=== PATIENT | female | born 1975 | race Caucasian/White ===

== ENCOUNTER 2023-02-26 19:45 | Inpatient (IN) | payer OTHER ==
--- NOTE | 2023-02-26 20:11 | ED ---
General Adult HPI - General Chief complaint: Abdominal Pain Stated complaint: Gallbladder pain Time Seen by Provider: 02/26/23 20:01 Source: patient Mode of arrival: ambulatory Limitations: no limitations - History of Present Illness Initial comments: Dictation was produced using [employer] dictation software. please excuse any grammatical, word or spelling errors. Chief Complaint: 48-year-old female presents emergency department for right upper quadrant pain History of Present Illness: 48-year-old female she was seen at [facility] today for 2 days of right upper quadrant pain. No fevers. No nausea or vomiting. She was seen at [facility] and had a outpatient ultrasound scheduled. She decided to come here for her pain. She is aware that we have more robust ultrasound capabilities. Patient denies any history of abdominal surgery. She is upset that she does not remember the details of her visit at outside ER. The ROS documented in this emergency department record has been reviewed and confirmed by me. Those systems with pertinent positive or negative responses have been documented in the HPI. All other systems are other negative and/or noncontributory. - Related Data Home Medications Medication Instructions Recorded Confirmed HYDROcodone/APAP 5-325MG [Artie 1 tab PO Q6H PRN 02/26/23 02/26/23 5-325] Ibuprofen [Motrin Ib] 600 mg PO DAILY PRN 02/26/23 02/26/23 Allergies Allergy/AdvReac Type Severity Reaction Status Date / Time No Known Allergies Allergy Verified 02/26/23 21:24 Review of Systems ROS Statement: Those systems with pertinent positive or pertinent negative responses have been documented in the HPI. ROS Other: All systems not noted in ROS Statement are negative. Past Medical History Past Medical History: No Reported History History of Any Multi-Drug Resistant Organisms: None Reported Past Surgical History: No Surgical Hx Reported Past Psychological History: No Psychological Hx Reported Smoking Status: Current every day smoker Past Alcohol Use History: None Reported Past Drug Use History: None Reported General Exam - General Exam Comments Initial Comments: PHYSICAL EXAM: General Impression: Alert and oriented x3, not in acute distress HEENT: Normocephalic atraumatic, extra-ocular movements intact, pupils equal and reactive to light bilaterally, mucous membranes moist. Cardiovascular: Heart regular rate and rhythm Chest: Able to complete full sentences, no retractions, no tachypnea Abdomen: abdomen soft, right upper quadrant tenderness, negative Dey sign, non-distended, no organomegaly Musculoskeletal: Pulses present and equal in all extremities, no peripheral edema Motor: no focal deficits noted Neurological: CN II-XII grossly intact, no focal motor or sensory deficits noted Skin: Intact with no visualized rashes Psych: Normal affect and mood Limitations: no limitations Course Vital Signs 02/26/23 19:56 Temperature 97.6 F Pulse Rate 68 Respiratory 16 Rate Blood Pressure 117/74 O2 Sat by Pulse 97 Oximetry - Reevaluation(s) Reevaluation #1: 02/26/23 21:12 Documentation was obtained from [facility] from her visit earlier today. She presented there for right upper quadrant abdominal pain, diarrhea and vomiting. Labs reviewed. No leukocytosis. Lactic acidosis is normal. Abdominal labs showed otherwise labs within acceptable limits. According to documentation her clinical presentation there suggested calculus cholecystitis. She was scheduled for an outpatient ultrasound Medical Decision Making - Medical Decision Making Was pt. sent in by a medical professional or institution (, PA, CERTIFIED WELLNESS PROGRAM MANAGER, urgent care, hospital, or skilled nursing...) When possible be specific @ -No Did you speak to anyone other than the patient for history (EMS, parent, family, police, friend...)? What history was obtained from this source @ -No Did you review nursing and triage notes (agree or disagree)? Why? @ -I reviewed and agree with nursing and triage notes Were old charts reviewed (outside hosp., previous admission, EMS record, old EKG, old radiological studies, urgent care reports/EKG's, skilled nursing records)? Report findings @ -No old charts were reviewed Differential Diagnosis (chest pain, altered mental status, abdominal pain women, abdominal pain men, vaginal bleeding, musculoskeletal, weakness, fever, dyspnea, syncope, headache, dizziness, GI bleed, back pain, seizure, CVA, palpatations, mental health)? @ -Differential Abdominal Pain Women: Appendicitis, Cholecystitis, diverticulosis, ischemic bowel, pancreatitis, hepatitis, UTI, gastroenteritis, AAA, incarcerated hernia, bowel obstruction, constipation, inflammatory bowel, hepatitis, peptic ulcer disease, splenic infarction, perforated viscus, vulvitis, ovarian torsion, PID, kidney stone, placenta abruption, this is not meant to be an all-inclusive list EKG interpreted by me (3pts min.). @ -None done X-rays interpreted by me (1pt min.). @ -None done CT interpreted by me (1pt min.). @ -None done U/S interpreted by me (1pt. min.). @ -Gallstone with, thickened espinoza and mild pericholecystic fluid What testing was considered but not performed or refused? (CT, X-rays, U/S, labs)? Why? @ -None What meds were considered but not given or refused? Why? @ -None Did you discuss the management of the patient with other professionals (professionals i.e. DrWendi, PA, CERTIFIED WELLNESS PROGRAM MANAGER, lab, RT, psych nurse, high school social studies tutor, process safety engineer, teacher, escrow officer, welfare case worker)? Give summary @ -Case discussed with on-call general surgeon, Dr. Ruvalcaba for admission and she requests patient be given Zosyn. Was smoking cessation discussed for >3mins.? @ -No Was critical care preformed (if so, how long)? @ -No Were there social determinants of health that impacted care today? How? (Homelessness, low income, unemployed, alcoholism, drug addiction, transportation, low edu. Level, literacy, decrease access to med. care, half-way, rehab)? @ -No Was there de-escalation of care discussed even if they declined (Discuss DNR or withdrawal of care, Hospice)? DNR status @ -No What co-morbidities impacted this encounter? (DM, HTN, Smoking, COPD, CAD, Cancer, CVA, ARF, Chemo, Hep., AIDS, mental health diagnosis, sleep apnea, morbid obesity)? @ -None Was patient admitted / discharged? Hospital course, mention meds given and route, prescriptions, significant lab abnormalities, going to OR and other pertinent info. @ -48-year-old female presents emergency department for right upper quadrant pain. She was seen at outside emergency department. She was discharged with schedule outpatient gallbladder ultrasound. She presented to our hospital in stable vital signs. Documentation from outside Hospital visit was reviewed. Laboratory evaluation obtained. CBC and metabolic panel within acceptable limits.Ultrasound was ordered showing radiographically evidence of acute cholecystitis. Patient given Zosyn will be admitted to general surgery Undiagnosed new problem with uncertain prognosis? @ -No Drug Therapy requiring intensive monitoring for toxicity (Heparin, Nitro, Insulin, Cardizem)? @ -No Were any procedures done? @ -No Diagnosis/symptom? Acute, or Chronic, or Acute on Chronic? Uncomplicated (without systemic symptoms) or Complicated (systemic symptoms)? @ -1. Acute cholecystitis Side effects of treatment? @ -No Exacerbation, Progression, or Severe Exacerbation? @ -No Poses a threat to life or bodily function? How? (Chest pain, [place], [place], pneumonia, PE, COPD, DKA, ARF, appy, cholecystitis, CVA, Diverticulitis, Homicidal, Suicidal, threat to staff... and all critical care pts) @ -yes - Lab Data Result diagrams: 02/26/23 21:16 02/26/23 21:16 Lab Results 02/26/23 02/26/23 02/26/23 Range/Units 21:16 21:16 21:16 WBC 10.0 (3.8-10.6) k/uL RBC 4.51 (3.80-5.40) m/uL Hgb 12.7 (11.4-16.0) gm/dL Hct 40.0 (34.0-46.0) % MCV 88.6 (80.0-100.0) fL MCH 28.1 (25.0-35.0) pg MCHC 31.7 (31.0-37.0) g/dL RDW 17.5 H (11.5-15.5) % Plt Count 216 (150-450) k/uL MPV 7.0 Neutrophils % 76 % Lymphocytes % 16 % Monocytes % 5 % Eosinophils % 1 % Basophils % 0 % Neutrophils # 7.6 (1.3-7.7) k/uL Lymphocytes # 1.6 (1.0-4.8) k/uL Monocytes # 0.5 (0-1.0) k/uL Eosinophils # 0.1 (0-0.7) k/uL Basophils # 0.0 (0-0.2) k/uL Anisocytosis Slight Sodium 132 L (137-145) mmol/L Potassium 3.8 (3.5-5.1) mmol/L Chloride 106 (98-107) mmol/L Carbon Dioxide 19 L (22-30) mmol/L Anion Gap 7 mmol/L BUN 9 (7-17) mg/dL Creatinine 0.60 (0.52-1.04) mg/dL Est GFR (CKD-EPI)AfAm >90 (>60 ml/min/1.73 sqM) Est GFR (CKD-EPI)NonAf >90 (>60 ml/min/1.73 sqM) Glucose 97 (74-99) mg/dL Plasma Lactic Acid Justin 0.7 (0.7-2.0) mmol/L Calcium 7.5 L (8.4-10.2) mg/dL Total Bilirubin 2.3 H (0.2-1.3) mg/dL AST 21 (14-36) U/L ALT 16 (4-34) U/L Alkaline Phosphatase 85 (38-126) U/L Total Protein 4.8 L (6.3-8.2) g/dL Albumin 2.8 L (3.5-5.0) g/dL Disposition Clinical Impression: Acute cholecystitis Disposition: ADMITTED IP TO THIS HOSP Condition: Fair Decision Time: 21:01
--- NOTE | 2023-02-26 20:50 | US ---
EXAMINATION TYPE: US abdomen limited DATE OF EXAM: 02/26/2023 COMPARISON: NONE CLINICAL INDICATION: Female, 48 years old with history of ruq pain; extreme abd pain for 2 days TECHNIQUE: Multiple sonographic images of the right upper quadrant are obtained. FINDINGS: EXAM MEASUREMENTS: Liver Length: 15.0 cm Gallbladder Wall: 1.1 cm CBD: 0.5 cm Right Kidney: 9.1 x 4.9 x 5.1 cm Pancreas: Within normal limits. Liver: Within normal limits. Gallbladder: 1.3cm neck stone that did not move when rolling patient, additional stone noted, sludge , and gross wall thickening with pericholecystic fluid seen Evidence for sonographic Dey's sign: YES CBD: Within normal limits measuring up to 5 mm. Right Kidney: Normal appearance. Findings communicated to Dr. Santo Pratt DO on 02/26/2023 8:[address] Sarah Alvarez. IMPRESSION: Sonographic findings concerning for acute calculus cholecystitis.
[2023-02-26] MEDS ORDERED: NALOXONE 0.4 MG/ML 1 ML VIAL IV PRN (21:39)
[2023-02-26] MEDS ORDERED: ONDANSETRON 4 MG/2 ML VIAL IVP PRN (21:39)
[2023-02-26] MEDS ORDERED: MORPHINE SULFATE 4 MG/ML SYRINGE IV PRN (21:39)
[2023-02-26 21:57] LABS: Anisocytosis Slight; Basophils % (A) 0 %; Eosinophils # (A) 0.1 k/uL (0-0.7); Eosinophils % (A) 1 %; HGB 12.7 gm/dL (11.4-16.0); Lymphocytes # (A) 1.6 k/uL (1.0-4.8); Lymphocytes % (A) 16 %; MCH 28.1 pg (25.0-35.0); MCHC 31.7 g/dL (31.0-37.0); MCV 88.6 fL (80.0-100.0); Monocytes # (A) 0.5 k/uL (0-1.0); Monocytes % (A) 5 %; Neutrophils # (A) 7.6 k/uL (1.3-7.7); Neutrophils % (A) 76 %; Platelet Count 216 k/uL (150-450); RBC 4.51 m/uL (3.80-5.40); RDW 17.5 % (11.5-15.5)
[2023-02-26] MEDS: SODIUM CHLORIDE 0.9% 1,000 ML IV SCH (22:02)
[2023-02-26 22:06] LABS: ALT 16 U/L (4-34); AST 21 U/L (14-36); African American GFR (CKD) >90 (>60 ml/min/1.73 sqM); Albumin 2.8 g/dL (3.5-5.0); Alkaline Phosphatase 85 U/L (38-126); Anion Gap 7 mmol/L; Blood Urea Nitrogen 9 mg/dL (7-17); Calcium 7.5 mg/dL (8.4-10.2); Carbon Dioxide 19 mmol/L (22-30); Chloride 106 mmol/L (98-107); Glucose 97 mg/dL (74-99); Non-African American GFR(CKD) >90 (>60 ml/min/1.73 sqM); Potassium 3.8 mmol/L (3.5-5.1); Sodium 132 mmol/L (137-145); Total Bilirubin 2.3 mg/dL (0.2-1.3); Total Protein 4.8 g/dL (6.3-8.2)
[2023-02-26] MEDS: HYDROmorphone 1 MG/ML 1 ML SYRINGE IVP PRN (23:51)
[2023-02-26] MEDS: PIPERACILLIN-TAZOBACTAM 3.375 GM in SODIUM CHLORIDE 0.9% 100 ML IVPB SCH (23:51)
[2023-02-27] MEDS: PIPERACILLIN-TAZOBACTAM 3.375 GM in SODIUM CHLORIDE 0.9% 100 ML IVPB SCH ×3 (07:48→23:53)
[2023-02-27] MEDS: SODIUM CHLORIDE 0.9% 1,000 ML IV SCH ×2 (07:48→18:49)
[2023-02-27] MEDS: HYDROmorphone 1 MG/ML 1 ML SYRINGE IVP PRN (08:00)
[2023-02-27] MEDS: HEPARIN SODIUM,PORCINE/PF 5,000 UNIT/0.5 ML SYRINGE SQ SCH ×2 (10:45→21:12)
--- NOTE | 2023-02-27 11:41 | CONS ---
CONSULTATION REASON FOR CONSULTATION: Advice regarding cholecystitis and other medical issues requested by Surgery. HISTORY OF PRESENT ILLNESS: This is a 48-year-old woman with a past medical history of no significant issues but was complaining of right upper quadrant pain. The patient went to a peripheral hospital and subsequently came to [facility]. Ultrasound showed evidence of cholecystitis with a 1.3 cm neck stone. Surgery is planning the patient's surgery. There is no history of any fever, rigors, or chills. PAST MEDICAL HISTORY: No significant medical issues. Smoking. HOME MEDICATIONS: 1. Motrin. 2. Hydrocodone. ALLERGIES: None. FAMILY HISTORY: No history of heart disease or strokes in the family. SOCIAL HISTORY: Smoking. REVIEW OF SYSTEMS: Fourteen-point review is negative except as mentioned earlier. PHYSICAL EXAMINATION: VITAL SIGNS: Pulse 76, blood pressure 109/66, respirations 18. HEENT: Conjunctivae are normal. NECK: No jugular venous distention. CARDIOVASCULAR: S1 and S2 muffled. RESPIRATORY: Clear to auscultation. ABDOMEN: Soft. Mild diffuse tenderness in the right upper quadrant. No guarding. No rigidity. LEGS: No edema. NERVOUS SYSTEM: No focal deficits. SKIN: No ulcer, rash, or bleeding. JOINTS: No active deforming arthropathy. LABORATORY DATA: Reviewed. ASSESSMENT: 1. Acute cholecystitis with severe pain. 2. Acute cholelithiasis. 3. Hyponatremia. 4. Elevated bilirubin. 5. History of nicotine dependence. RECOMMENDATIONS AND DISCUSSION: This 48-year-old woman presented with features of acute cholelithiasis and cholecystitis. She is medically stable. The patient is cleared for surgery. I would recommend to repeat labs, empiric antibiotics. We will follow the patient closely. The patient is on IV Zosyn. DVT prophylaxis. See orders for details. Further recommendations to follow. Closely follow with Surgery. MMODL / IJN: [id number] /
--- NOTE | 2023-02-27 12:34 | XR ---
EXAMINATION TYPE: XR chest 1V portable DATE OF EXAM: 02/27/2023 Comparison: None Clinical History: 48 year-old female shortness of breath, CHF Findings: Heart normal size. The pulmonary vasculature within normal limits. Focal opacity at the right mid edie g. This has both bandlike and nodular configuration. Probable atelectasis. Some additional strandy at electasis at the left base. No consolidation or pleural effusion otherwise seen. IMPRESSION: Focal right midlung opacity. Some of this has a bandlike configuration suggesting subsegmental atelec tasis. Recommend follow-up in 4-6 weeks to ensure resolution and exclude any underlying pulmonary nod ule.
[2023-02-27] MEDS: HYDROmorphone 0.5 MG/0.5 ML SYRINGE IVP PRN ×2 (14:31→21:12)
--- NOTE | 2023-02-27 18:18 | P.GSHP ---
History of Present Illness H&P Date: 02/27/23 Chief Complaint: acute cholecystitis on US RUQ abdominal pain present for the past 2 days. Radiates to left side & to her back. No prior similar episodes. No notable food associations. Endorses diarrhea & bloating after eating. Was initially seen at the ER in [place], US was ordered but unable to be done until Monday. Pain too severe so patient came to [facility] to get US done. Revealed stone in GB neck, wall thickening & pericholecystic fluid. No leukocytosis. LFTs normal except TB elevated at 2.3 - Review of Systems Comment: as per HPI Past Medical History Past Medical History: No Reported History History of Any Multi-Drug Resistant Organisms: None Reported Past Surgical History: Section Past Anesthesia/Blood Transfusion Reactions: No Reported Reaction Past Psychological History: No Psychological Hx Reported Smoking Status: Current every day smoker Past Alcohol Use History: None Reported Past Drug Use History: None Reported Medications and Allergies Home Medications Medication Instructions Recorded Confirmed Type HYDROcodone/APAP 5-325MG [Niles 1 tab PO Q6H PRN 02/26/23 02/26/23 History 5-325] Ibuprofen [Motrin Ib] 600 mg PO DAILY PRN 02/26/23 02/26/23 History Allergies Allergy/AdvReac Type Severity Reaction Status Date / Time No Known Allergies Allergy Verified 02/26/23 21:24 Surgical - Exam Vital Signs Temp Pulse Resp BP Pulse Ox 97.6 F 68 16 117/74 97 02/26/23 19:56 02/26/23 19:56 02/26/23 19:56 02/26/23 19:56 02/26/23 19:56 - General non toxic appearing, appears uncomfortable due to pain well developed, well nourished - Eyes no icteric - ENT normal mucosa, no hearing loss - Neck supple - Respiratory normal expansion, normal respiratory effort, clear to auscultation - Cardiovascular Rhythm: regular Abnormal Heart Sounds: no systolic murmur, no diastolic murmur - Abdomen RUQ tenderness, no signs of peritonitis Abdomen: soft, tender, surgical scars, no guarding, no rigid, no rebound, no distended - Integumentary warm & dry, no diaphoresis - Neurologic no gross deficits - Musculoskeletal no LE edema - Psychiatric cooperative, normal affect Results - Labs 02/26/23 21:16 02/26/23 21:16 Abnormal Lab Results - Last 24 Hours (Table) 02/26/23 02/26/23 Range/Units 21:16 21:16 RDW 17.5 H (11.5-15.5) % Sodium 132 L (137-145) mmol/L Carbon Dioxide 19 L (22-30) mmol/L Calcium 7.5 L (8.4-10.2) mg/dL Total Bilirubin 2.3 H (0.2-1.3) mg/dL Total Protein 4.8 L (6.3-8.2) g/dL Albumin 2.8 L (3.5-5.0) g/dL Diabetes panel 02/26/23 Range/Units 21:16 Sodium 132 L (137-145) mmol/L Potassium 3.8 (3.5-5.1) mmol/L Chloride 106 (98-107) mmol/L Carbon Dioxide 19 L (22-30) mmol/L BUN 9 (7-17) mg/dL Creatinine 0.60 (0.52-1.04) mg/dL Glucose 97 (74-99) mg/dL Calcium 7.5 L (8.4-10.2) mg/dL AST 21 (14-36) U/L ALT 16 (4-34) U/L Alkaline Phosphatase 85 (38-126) U/L Total Protein 4.8 L (6.3-8.2) g/dL Albumin 2.8 L (3.5-5.0) g/dL Calcium panel 02/26/23 Range/Units 21:16 Calcium 7.5 L (8.4-10.2) mg/dL Albumin 2.8 L (3.5-5.0) g/dL Pituitary panel 02/26/23 Range/Units 21:16 Sodium 132 L (137-145) mmol/L Potassium 3.8 (3.5-5.1) mmol/L Chloride 106 (98-107) mmol/L Carbon Dioxide 19 L (22-30) mmol/L BUN 9 (7-17) mg/dL Creatinine 0.60 (0.52-1.04) mg/dL Glucose 97 (74-99) mg/dL Calcium 7.5 L (8.4-10.2) mg/dL Adrenal panel 02/26/23 Range/Units 21:16 Sodium 132 L (137-145) mmol/L Potassium 3.8 (3.5-5.1) mmol/L Chloride 106 (98-107) mmol/L Carbon Dioxide 19 L (22-30) mmol/L BUN 9 (7-17) mg/dL Creatinine 0.60 (0.52-1.04) mg/dL Glucose 97 (74-99) mg/dL Calcium 7.5 L (8.4-10.2) mg/dL Total Bilirubin 2.3 H (0.2-1.3) mg/dL AST 21 (14-36) U/L ALT 16 (4-34) U/L Alkaline Phosphatase 85 (38-126) U/L Total Protein 4.8 L (6.3-8.2) g/dL Albumin 2.8 L (3.5-5.0) g/dL - Imaging Chest x-ray: report reviewed US - abdomen: report reviewed Assessment and Plan Assessment: abdominal pain 2/2 acute cholecystitis, symptomatic cholelithiasis Plan: Toradol, Niles to optimize pain Bentyl for biliary spasms Continue Zosyn OK for clears Tentatively boarded for robotic assisted laparoscopic cholecystectomy with firefly, possible open If TB not down-trending, will order MRCP. Time with Patient: Less than 30
[2023-02-27] MEDS: KETOROLAC 15 MG/ML 1 ML VIAL IVP SCH ×2 (18:29→23:52)
[2023-02-27] MEDS: DICYCLOMINE 20 MG TAB PO SCH (21:12)
[2023-02-28] MEDS: HYDROmorphone 0.5 MG/0.5 ML SYRINGE IVP PRN ×4 (03:28→23:02)
[2023-02-28] MEDS: SODIUM CHLORIDE 0.9% 1,000 ML IV SCH ×2 (05:39→12:47)
[2023-02-28] MEDS: KETOROLAC 15 MG/ML 1 ML VIAL IVP SCH ×4 (05:39→23:02)
[2023-02-28 08:08] LABS: INR 0.9 (<1.2); Partial Thromboplastin Time 23.3 sec (22.0-30.0); Prothrombin Time 9.4 sec (9.0-12.0)
[2023-02-28] MEDS: HEPARIN SODIUM,PORCINE/PF 5,000 UNIT/0.5 ML SYRINGE SQ SCH ×3 (08:59→21:14)
[2023-02-28] MEDS: PIPERACILLIN-TAZOBACTAM 3.375 GM in SODIUM CHLORIDE 0.9% 100 ML IVPB SCH ×3 (08:59→23:02)
[2023-02-28] MEDS: DICYCLOMINE 20 MG TAB PO SCH ×4 (08:59→21:12)
[2023-02-28] MEDS: NICOTINE 14MG/24HR PATCH TRANSDERM SCH (09:00)
[2023-02-28 11:01] LABS: Basophils # (A) 0.06 X 10*3/uL (0.00-0.10); Basophils % (A) 0.6 %; Eosinophils # (A) 0.07 X 10*3/uL (0.04-0.35); Eosinophils % (A) 0.7 %; HCT 33.3 % (37.2-46.3); HGB 10.5 g/dL (12.0-15.0); Immature Grans, Automated 1.2 %; Lymphocytes # (A) 1.16 X 10*3/uL (0.90-5.00); Lymphocytes % (A) 12.1 %; MCH 28.8 pg (27.0-32.0); MCHC 31.5 g/dL (32.0-37.0); MCV 91.5 fL (80.0-97.0); Mean Platelet Volume 9.6 fL (9.5-12.2); Monocytes # (A) 0.71 X 10*3/uL (0.20-1.00); Monocytes % (A) 7.4 %; NRBC Per 100 WBC 0 /100 WBCS (0.0-0.0); Neutrophils # (A) 7.44 X 10*3/uL (1.80-7.70); Platelet Count 197 X 10*3/uL (140-440); RBC 3.64 X 10*6/uL (4.10-5.20); RDW 18.8 % (11.5-14.5); WBC 9.55 X 10*3/uL (4.50-10.00)
[2023-02-28 11:10] LABS: African American GFR (CKD) 100.3 (60.0-200.0); Albumin 2.7 g/dL (3.8-4.9); Albumin/Globulin Ratio 1.93 (1.60-3.17); Anion Gap 10.9 mmol/L (10.00-18.00); BUN/Creat Ratio 10.25 Ratio (12.00-20.00); Blood Urea Nitrogen 8.2 mg/dL (9.0-27.0); Calcium 7.7 mg/dL (8.7-10.3); Carbon Dioxide 15.1 mmol/L (20.0-27.5); Globulin 1.4 g/dL (1.6-3.3); Non-African American GFR(CKD) 86.6 (60.0-200.0); Potassium 4.3 mmol/L (3.5-5.5); Total Bilirubin 1.3 mg/dL (0.30-1.20); Total Protein 4.1 g/dL (6.2-8.2)
--- NOTE | 2023-02-28 11:59 | PN ---
PROGRESS NOTE DATE OF SERVICE: 02/28/2023 SUBJECTIVE: This is a 48-year-old woman, who was admitted with acute cholecystitis and severe pain, is being closely monitored. Surgery is planning laparoscopic cholecystectomy. OBJECTIVE: VITAL SIGNS: Pulse is 65, blood pressure 90/50, respirations 18. CHEST: Clear to auscultation. ABDOMEN: Soft, mild diffuse tenderness in the right upper quadrant. No guarding. No rigidity. LABORATORY DATA: Not available. ASSESSMENT: 1. Acute cholecystitis with severe pain. 2. Elevated LFTs. 3. Acute cholelithiasis. 4. Hyponatremia. 5. Elevated bilirubin. 6. History of nicotine dependence. RECOMMENDATIONS AND DISCUSSION: Recommend to continue current management. Continue symptomatic treatment. Otherwise, continue the broad-spectrum IV antibiotics. Follow closely with Surgery. DVT prophylaxis. Repeat labs. Further recommendations to follow. CJ / CHARLEEN: [id number] /
[2023-02-28] MEDS: HYDROcodone/APAP 5-325MG 1 EACH TAB PO PRN ×2 (15:21→21:12)
--- NOTE | 2023-02-28 18:43 | P.PN ---
Subjective Progress Note Date: 02/28/23 Principal diagnosis: acute cholecystitis on US RUQ abdominal pain present for the past 2 days. Radiates to left side & to her back. No prior similar episodes. No notable food associations. Endorses diarrhea & bloating after eating. Was initially seen at the ER in [place], US was ordered but unable to be done until Monday. Pain too severe so patient came to [facility] to get US done. Revealed stone in GB neck, wall thickening & pericholecystic fluid. No leukocytosis. LFTs normal except TB elevated at 2.3. Doing little better today with pain control. Still present. Tolerating clear liquids. TB down-trending today, suspect passed gallstone. Objective - Vital Signs Vital signs: Vital Signs Temp 98.8 F 02/28/23 12:39 Pulse 72 02/28/23 12:39 Resp 16 02/28/23 12:39 BP 100/68 02/28/23 12:39 Pulse Ox 97 02/28/23 12:39 FiO2 Intake & Output 02/27/23 02/28/23 02/28/23 18:59 06:59 18:59 Intake Total 900 1100 Balance 900 1100 Intake: Intake, IV Titration 900 1100 Amount Piperacillin-Tazobactam 3 200 .375 gm In Sodium Chloride 0.9% 100 ml @ 25 mls/hr IVPB Q8HR LEEANN Rx# :[id number] Sodium Chloride 0.9% 1, 900 900 000 ml @ 75 mls/hr IV . [id number] LEEANN Rx#:[id number] Other: # Voids 2 4 - Constitutional General appearance: Present: cooperative, no acute distress - EENT Eyes: Present: anicteric sclerae ENT: Present: hearing grossly normal - Respiratory Details: non labored, normal effort - Cardiovascular Rhythm: regular - Gastrointestinal Gastrointestinal Comment(s): right-sided tenderness, no peritoneal signs General gastrointestinal: Present: soft, tenderness. Absent: distended, rigid, scaphoid - Integumentary Integumentary Comment(s): warm & dry, no diaphoresis; no jaundice - Neurologic Neurologic Comment(s): no gross deficits - Psychiatric Psychiatric Comment(s): cooperative, normal affect - Labs CBC & Chem 7: 02/28/23 06:48 02/28/23 06:48 Labs: Abnormal Lab Results - Last 24 Hours (Table) 02/28/23 02/28/23 Range/Units 06:48 06:48 RBC 3.64 L (4.10-5.20) X 10*6/uL Hgb 10.5 L (12.0-15.0) g/dL Hct 33.3 L (37.2-46.3) % MCHC 31.5 L (32.0-37.0) g/dL RDW 18.8 H (11.5-14.5) % Immature Gran # 0.11 H (0.00-0.04) X 10*3/uL Sodium 134 L (135-145) mmol/L Carbon Dioxide 15.1 L (20.0-27.5) mmol/L BUN 8.2 L (9.0-27.0) mg/dL BUN/Creatinine Ratio 10.25 L (12.00-20.00) Ratio Glucose 69 L (70-110) mg/dL Calcium 7.7 L (8.7-10.3) mg/dL Total Bilirubin 1.30 H (0.30-1.20) mg/dL Total Protein 4.1 L (6.2-8.2) g/dL Albumin 2.7 L (3.8-4.9) g/dL Globulin 1.4 L (1.6-3.3) g/dL Assessment and Plan Assessment: abdominal pain 2/2 acute cholecystitis, symptomatic cholelithiasis elevated TBili, down-trending Plan: Continue Zosyn OK for clears Tentatively boarded for robotic assisted laparoscopic cholecystectomy with firefly, possible open at 1500 - [facility] TB down-trending, will hold off MRCP Time with Patient: Less than 30
[2023-03-01] MEDS: KETOROLAC 15 MG/ML 1 ML VIAL IVP SCH ×4 (05:19→23:24)
[2023-03-01] MEDS: ONDANSETRON 4 MG/2 ML VIAL IVP PRN (05:19)
[2023-03-01] MEDS: HYDROmorphone 0.5 MG/0.5 ML SYRINGE IVP PRN ×2 (05:20→20:00)
[2023-03-01] MEDS: NICOTINE 14MG/24HR PATCH TRANSDERM SCH (07:17)
[2023-03-01] MEDS: HEPARIN SODIUM,PORCINE/PF 5,000 UNIT/0.5 ML SYRINGE SQ SCH ×2 (07:17→20:01)
[2023-03-01] MEDS: DICYCLOMINE 20 MG TAB PO SCH ×4 (08:15→20:01)
[2023-03-01] MEDS: HYDROcodone/APAP 5-325MG 1 EACH TAB PO PRN ×3 (08:15→23:24)
[2023-03-01] MEDS: PIPERACILLIN-TAZOBACTAM 3.375 GM in SODIUM CHLORIDE 0.9% 100 ML IVPB SCH ×3 (08:16→23:28)
[2023-03-01] MEDS: SODIUM CHLORIDE 0.9% 1,000 ML IV SCH (08:17)
--- NOTE | 2023-03-01 09:11 | P.PN ---
Subjective Progress Note Date: 03/01/23 Principal diagnosis: acute cholecystitis on US RUQ abdominal pain present for the past 2 days. Radiates to left side & to her back. No prior similar episodes. No notable food associations. Endorses diarrhea & bloating after eating. Was initially seen at the ER in [place], US was ordered but unable to be done until Monday. Pain too severe so patient came to [facility] to get US done. Revealed stone in GB neck, wall thickening & pericholecystic fluid. No leukocytosis. LFTs normal except TB elevated at 2.3. Not doing as well today. Nausea & pain. Scheduled for surgery tomorrow. TBili normalized today; suspect passed stone. Objective - Vital Signs Vital signs: Vital Signs Temp 99.0 F 03/01/23 07:17 Pulse 72 03/01/23 07:17 Resp 15 03/01/23 07:17 BP 89/55 03/01/23 07:17 Pulse Ox 99 03/01/23 07:17 FiO2 Intake & Output 02/28/23 03/01/23 03/01/23 18:59 06:59 18:59 Intake Total 1100 Balance 1100 Intake: Intake, IV Titration 1100 Amount Piperacillin-Tazobactam 3 200 .375 gm In Sodium Chloride 0.9% 100 ml @ 25 mls/hr IVPB Q8HR LEEANN Rx# :[id number] Sodium Chloride 0.9% 1, 900 000 ml @ 75 mls/hr IV . [id number] LEEANN Rx#:[id number] Other: # Voids 4 2 - Constitutional General appearance: Present: cooperative, no acute distress - EENT ENT: Present: hearing grossly normal - Neck Details: supple - Respiratory Details: non labored, normal effort - Cardiovascular Rhythm: regular - Gastrointestinal General gastrointestinal: Absent: distended - Neurologic Neurologic Comment(s): no gross deficits - Psychiatric Psychiatric Comment(s): cooperative, normal affect - Labs CBC & Chem 7: 03/01/23 05:42 03/01/23 05:42 Labs: Abnormal Lab Results - Last 24 Hours (Table) 02/28/23 02/28/23 Range/Units 06:48 06:48 RBC 3.64 L (4.10-5.20) X 10*6/uL Hgb 10.5 L (12.0-15.0) g/dL Hct 33.3 L (37.2-46.3) % MCHC 31.5 L (32.0-37.0) g/dL RDW 18.8 H (11.5-14.5) % Immature Gran # 0.11 H (0.00-0.04) X 10*3/uL Sodium 134 L (135-145) mmol/L Carbon Dioxide 15.1 L (20.0-27.5) mmol/L BUN 8.2 L (9.0-27.0) mg/dL BUN/Creatinine Ratio 10.25 L (12.00-20.00) Ratio Glucose 69 L (70-110) mg/dL Calcium 7.7 L (8.7-10.3) mg/dL Total Bilirubin 1.30 H (0.30-1.20) mg/dL Total Protein 4.1 L (6.2-8.2) g/dL Albumin 2.7 L (3.8-4.9) g/dL Globulin 1.4 L (1.6-3.3) g/dL Assessment and Plan Assessment: abdominal pain 2/2 acute cholecystitis, symptomatic cholelithiasis elevated TBili, normalized Plan: Continue Zosyn OK for clears, NPO tonight for surgery Tentatively boarded for robotic assisted laparoscopic cholecystectomy with firefly, possible open at 1500 TB normalized, will hold off MRCP
[2023-03-01 09:30] LABS: African American GFR (CKD) 111.9 (60.0-200.0); Albumin 2.8 g/dL (3.8-4.9); Albumin/Globulin Ratio 1.77 (1.60-3.17); Anion Gap 15.5 mmol/L (10.00-18.00); BUN/Creat Ratio 9.1 Ratio (12.00-20.00); Blood Urea Nitrogen 6.7 mg/dL (9.0-27.0); Calcium 7.7 mg/dL (8.7-10.3); Carbon Dioxide 10.2 mmol/L (20.0-27.5); Globulin 1.6 g/dL (1.6-3.3); Non-African American GFR(CKD) 96.5 (60.0-200.0); Potassium 4.4 mmol/L (3.5-5.5); Total Bilirubin 0.8 mg/dL (0.30-1.20); Total Protein 4.4 g/dL (6.2-8.2)
--- NOTE | 2023-03-01 12:01 | PN ---
PROGRESS NOTE DATE OF SERVICE: 03/01/2023 SUBJECTIVE: This is a 48-year-old woman who was admitted with acute cholecystitis, severe pain, is scheduled for surgery tomorrow. The patient is on broad spectrum IV antibiotics. OBJECTIVE: VITAL SIGNS: Pulse 73, blood pressure 94/59, respirations 16. CHEST: Clear to auscultation. ABDOMEN: Soft. NERVOUS SYSTEM: No focal deficits. LABORATORY DATA: Labs are reviewed. ASSESSMENT: 1. Acute cholecystitis and severe pain. 2. Elevated LFTs. 3. Acute cholelithiasis. 4. Hyponatremia. 5. Elevated bilirubin. 6. History of nicotine dependence. RECOMMENDATIONS: Recommend to continue current medications. Continue symptomatic treatment. Otherwise, I would recommend repeat labs. I would also recommend IV boluses and further recommendations to follow. MMODL / IJN: [id number] /
[2023-03-01 12:06] LABS: Basophils # (A) 0.06 X 10*3/uL (0.00-0.10); Basophils % (A) 0.7 %; Eosinophils # (A) 0.09 X 10*3/uL (0.04-0.35); HCT 34.1 % (37.2-46.3); HGB 10.4 g/dL (12.0-15.0); Immature Grans, Automated 1.4 %; Lymphocytes # (A) 0.77 X 10*3/uL (0.90-5.00); Lymphocytes % (A) 8.9 %; MCH 28.5 pg (27.0-32.0); MCHC 30.5 g/dL (32.0-37.0); MCV 93.4 fL (80.0-97.0); Mean Platelet Volume 9.3 fL (9.5-12.2); Monocytes # (A) 0.85 X 10*3/uL (0.20-1.00); Monocytes % (A) 9.9 %; NRBC Per 100 WBC 0 /100 WBCS (0.0-0.0); Neutrophils # (A) 6.73 X 10*3/uL (1.80-7.70); Neutrophils % (A) 78.1 %; Platelet Count 222 X 10*3/uL (140-440); RBC 3.65 X 10*6/uL (4.10-5.20); RDW 18.9 % (11.5-14.5); WBC 8.62 X 10*3/uL (4.50-10.00)
[2023-03-01] MEDS: D5-0.9% NACL WITH KCL 20 MEQ/L 1,000 ML IV SCH ×2 (12:21→23:20)
[2023-03-01] MEDS: ALPRAZolam 0.25 MG TAB PO PRN ×2 (12:37→20:01)
[2023-03-02] MEDS: ONDANSETRON 4 MG/2 ML VIAL IVP PRN (04:37)
[2023-03-02] MEDS: KETOROLAC 15 MG/ML 1 ML VIAL IVP SCH ×3 (04:38→21:34)
[2023-03-02] MEDS: ALPRAZolam 0.25 MG TAB PO PRN (06:05)
[2023-03-02] MEDS: HYDROmorphone 0.5 MG/0.5 ML SYRINGE IVP PRN ×3 (06:05→21:39)
[2023-03-02] MEDS: D5-0.9% NACL WITH KCL 20 MEQ/L 1,000 ML IV SCH ×2 (08:51→21:44)
[2023-03-02] MEDS: DICYCLOMINE 20 MG TAB PO SCH ×4 (08:53→22:16)
[2023-03-02] MEDS: HEPARIN SODIUM,PORCINE/PF 5,000 UNIT/0.5 ML SYRINGE SQ SCH ×2 (08:53→21:32)
[2023-03-02] MEDS: NICOTINE 14MG/24HR PATCH TRANSDERM SCH (09:19)
[2023-03-02] MEDS: PIPERACILLIN-TAZOBACTAM 3.375 GM in SODIUM CHLORIDE 0.9% 100 ML IVPB SCH ×3 (09:20→21:42)
[2023-03-02 11:41] LABS: African American GFR (CKD) 117.9 (60.0-200.0); Albumin 2.8 g/dL (3.8-4.9); Albumin/Globulin Ratio 1.65 (1.60-3.17); BUN/Creat Ratio 6.57 Ratio (12.00-20.00); Blood Urea Nitrogen 4.6 mg/dL (9.0-27.0); Calcium 7.9 mg/dL (8.7-10.3); Globulin 1.7 g/dL (1.6-3.3); Non-African American GFR(CKD) 101.7 (60.0-200.0); Potassium 4.5 mmol/L (3.5-5.5); Total Bilirubin 0.4 mg/dL (0.30-1.20); Total Protein 4.5 g/dL (6.2-8.2)
[2023-03-02 12:20] LABS: Basophils # (A) 0.05 X 10*3/uL (0.00-0.10); Basophils % (A) 0.6 %; Eosinophils # (A) 0.08 X 10*3/uL (0.04-0.35); Eosinophils % (A) 0.9 %; HCT 32.5 % (37.2-46.3); HGB 10.3 g/dL (12.0-15.0); Immature Grans, Automated 3.7 %; Lymphocytes # (A) 0.86 X 10*3/uL (0.90-5.00); MCH 28.7 pg (27.0-32.0); MCHC 31.7 g/dL (32.0-37.0); MCV 90.5 fL (80.0-97.0); Mean Platelet Volume 9.3 fL (9.5-12.2); Monocytes # (A) 0.64 X 10*3/uL (0.20-1.00); Monocytes % (A) 7.4 %; NRBC Per 100 WBC 0 /100 WBCS (0.0-0.0); Neutrophils # (A) 6.66 X 10*3/uL (1.80-7.70); Neutrophils % (A) 77.4 %; Platelet Count 234 X 10*3/uL (140-440); RBC 3.59 X 10*6/uL (4.10-5.20); WBC 8.61 X 10*3/uL (4.50-10.00)
--- NOTE | 2023-03-02 13:30 | PN ---
PROGRESS NOTE DATE OF SERVICE: 03/02/2023 SUBJECTIVE: This 48-year-old woman was admitted with acute cholecystitis, scheduled for surgery. No chest pain, no palpitations, no fever. OBJECTIVE: VITAL SIGNS: Pulse 82, blood pressure 86/50, respirations 16. CHEST: Few scattered rhonchi. ABDOMEN: Soft. NERVOUS SYSTEM: No focal deficits. LABORATORY DATA: Reviewed. ASSESSMENT: 1. Acute cholecystitis, severe pain. 2. Elevated LFTs. 3. Acute cholelithiasis. 4. Hyponatremia. 5. Elevated bilirubin. 6. History of nicotine dependence. RECOMMENDATIONS AND DISCUSSION: Recommended to continue current medications, continue symptomatic treatment. I would recommend increasing the IV to 125. Continue to monitor. Further recommendations to follow. MMODL / IJN: [id number] /
[2023-03-02 14:16] VITALS: BMI 23.6
[2023-03-02] MEDS ORDERED: IV FLUID CONTINUATION 1,000 ML IV ONE (14:31)
[2023-03-02] MEDS ORDERED: INDOCYANINE GREEN 25 MG VIAL IV STA (15:15)
[2023-03-02] MEDS ORDERED: SUCCINYLCHOLINE CHLORIDE 200 MG/10 ML VIAL IV ONE (15:39)
[2023-03-02] MEDS ORDERED: fentaNYL (PF) 50 MCG/ML 2 ML AMP ONE (15:39)
[2023-03-02] MEDS ORDERED: ROCURONIUM 10 MG/ML (5 ML VIAL) IV ONE (15:39)
[2023-03-02] MEDS ORDERED: PHENYLEPHRINE-0.9% NACL SYG 1,000 MCG/10 ML SYRINGE ONE (15:39)
[2023-03-02] MEDS ORDERED: HEPARIN SODIUM,PORCINE 5,000 UNIT/ML 1 ML VIAL SQ ONE (15:39)
[2023-03-02] MEDS ORDERED: MIDAZOLAM 2 MG/2 ML VIAL ONE (15:39)
[2023-03-02] MEDS ORDERED: PROPOFOL 10 MG/ML 20 ML VIAL IV ONE (15:39)
[2023-03-02] MEDS ORDERED: ONDANSETRON 4 MG/2 ML VIAL ONE (15:39)
[2023-03-02] MEDS ORDERED: HYDROmorphone (PF) 1 MG/ML ONE (15:39)
[2023-03-02] MEDS ORDERED: KETOROLAC 15 MG/ML 1 ML VIAL ONE (15:39)
[2023-03-02] MEDS ORDERED: GLYCOPYRROLATE 0.2 MG/ML 2 ML VIAL ONE (15:39)
[2023-03-02] MEDS ORDERED: LIDOCAINE 2% INJ 20 MG/ML (2 ML VIAL) ONE (15:39)
[2023-03-02] MEDS ORDERED: NEOSTIGMINE 1 MG/ML 10 ML VIAL ONE (15:39)
[2023-03-02] MEDS ORDERED: BUPIVACAINE (PF) 0.5% 30 ML VIAL SQ ONE ×2 (16:04→16:07)
[2023-03-02] MEDS ORDERED: LACTATED RINGERS 1,000 ML IV ONE ×2 (17:29→19:31)
--- NOTE | 2023-03-02 18:40 | P.OP ---
Date of Procedure: 03/02/23 Preoperative Diagnosis: acute cholecystitis Postoperative Diagnosis: acute on chronic cholecystitis gallbladder hydrops Procedure(s) Performed: robotic assisted laparoscopic cholecystectomy, converted to open subtotal fenestrated cholecystectomy with BILLY drain placement Anesthesia: TRENTONA Surgeon: Trena Ruvalcaba Estimated Blood Loss (ml): 100 Pathology: other (portion of gallbladder & stones) Condition: stable Disposition: PACU Operative Findings: Large distended gallbladder when drained noted to be hydropic. Significant inflammatory changes unsafe to continue minimally invasive. Converted to open & gallbladder was adherent to the liver bed & ductal structures (which were unable to be visualized with ICG), unable to safely isolate the cystic duct & artery. Subtotal fenestrated cholecystectomy performed & two stones were removed. Thickened gallbladdder wall ~1cm was able to be sewn together. Back wall of gallbladder cauterized. Gallbladder was noted to be necrotic & chronically inflamed.
[2023-03-02] MEDS: MEPERIDINE 50 MG/ML SYRINGE IVP ONE ×2 (18:47→19:10)
[2023-03-02] MEDS ORDERED: droPERidol 5 MG/2 ML VIAL IVP ONE (19:13)
[2023-03-02] MEDS: diazePAM 2 MG TAB PO SCH (21:34)
[2023-03-02] MEDS: HYDROcodone/APAP 5-325MG 1 EACH TAB PO PRN (23:38)
[2023-03-03] MEDS: KETOROLAC 15 MG/ML 1 ML VIAL IVP SCH ×5 (00:14→23:02)
[2023-03-03] MEDS: HYDROmorphone 0.5 MG/0.5 ML SYRINGE IVP PRN ×4 (01:14→19:35)
[2023-03-03] MEDS: D5-0.9% NACL WITH KCL 20 MEQ/L 1,000 ML IV SCH ×3 (04:53→17:41)
[2023-03-03] MEDS: DICYCLOMINE 20 MG TAB PO SCH (08:31)
[2023-03-03] MEDS: PIPERACILLIN-TAZOBACTAM 3.375 GM in SODIUM CHLORIDE 0.9% 100 ML IVPB SCH ×3 (08:48→23:02)
[2023-03-03] MEDS: diazePAM 2 MG TAB PO SCH ×4 (08:49→21:14)
[2023-03-03] MEDS: HEPARIN SODIUM,PORCINE/PF 5,000 UNIT/0.5 ML SYRINGE SQ SCH (08:49)
[2023-03-03] MEDS: HYDROcodone/APAP 5-325MG 1 EACH TAB PO PRN (08:49)
[2023-03-03] MEDS: NICOTINE 14MG/24HR PATCH TRANSDERM SCH (08:49)
[2023-03-03] MEDS ORDERED: ACETAMINOPHEN TAB 500 MG TAB PO PRN (09:55)
--- NOTE | 2023-03-03 10:00 | P.PN ---
Subjective Progress Note Date: 03/03/23 Principal diagnosis: acute cholecystitis on US RUQ abdominal pain present for the past 2 days. Radiates to left side & to her back. No prior similar episodes. No notable food associations. Endorses diarrhea & bloating after eating. Was initially seen at the ER in [place], US was ordered but unable to be done until Monday. Pain too severe so patient came to [facility] to get US done. Revealed stone in GB neck, wall thickening & pericholecystic fluid. No leukocytosis. LFTs normal except TB elevated at 2.3. Underwent attempted robotic assisted laparoscopic cholecystectomy, converted to open subtotal fenestrated cholecystectomy with BILLY drain placement 03/02. Post op pain this morning & some muscle spasms. Tolerating liquids. BILLY with 25 mL out since surgery. BP improved with fluids. Today's labs are pending; anticipate a bump in white count from surgery. Objective - Vital Signs Vital signs: Vital Signs Temp 98.3 F 03/03/23 07:16 Pulse 73 03/03/23 07:16 Resp 18 03/03/23 07:16 BP 109/76 03/03/23 07:16 Pulse Ox 98 03/03/23 07:16 FiO2 Intake & Output 03/02/23 03/03/23 03/03/23 18:59 06:59 18:59 Intake Total 1300 1800 Output Total 100 25 Balance 1200 1775 Weight 56.699 kg Intake: IV 1300 600 Intake, IV Titration 1200 Amount D5-0.9% NaCl with KCl 20 1200 Meq/l 1,000 ml @ 125 mls/ hr IV .Q8H [facility] Rx#: [id number] Output: Drainage 25 Right Abdomen 25 Estimated Blood Loss 100 Other: Voiding Method Toilet Toilet Toilet - Constitutional Constitutional Comment(s): tearful General appearance: Present: cooperative - EENT Eyes: Present: anicteric sclerae - Neck Details: supple - Respiratory Details: non labored breathing, normal effort - Cardiovascular Rhythm: regular - Gastrointestinal Gastrointestinal Comment(s): appropriate post-op tenderness, incisions with sterile dressing, BILLY with serosang output (has surgicell in GB fossa) General gastrointestinal: Present: tenderness - Integumentary Integumentary Comment(s): warm & dry, no diaphoresis - Neurologic Neurologic Comment(s): no gross deficits - Psychiatric Psychiatric Comment(s): cooperative, tearful - Labs CBC & Chem 7: 03/02/23 06:18 03/02/23 06:18 Labs: Abnormal Lab Results - Last 24 Hours (Table) 03/02/23 03/02/23 Range/Units 06:18 06:18 RBC 3.59 L (4.10-5.20) X 10*6/uL Hgb 10.3 L (12.0-15.0) g/dL Hct 32.5 L (37.2-46.3) % MCHC 31.7 L (32.0-37.0) g/dL RDW 19.0 H (11.5-14.5) % MPV 9.3 L (9.5-12.2) fL Immature Gran # 0.32 H (0.00-0.04) X 10*3/uL Lymphocytes # 0.86 L (0.90-5.00) X 10*3/uL Chloride 111 H (96-109) mmol/L Carbon Dioxide 13.0 L (20.0-27.5) mmol/L BUN 4.6 L (9.0-27.0) mg/dL BUN/Creatinine Ratio 6.57 L (12.00-20.00) Ratio Glucose 176 H (70-110) mg/dL Calcium 7.9 L (8.7-10.3) mg/dL AST 12 L (13-35) U/L Total Protein 4.5 L (6.2-8.2) g/dL Albumin 2.8 L (3.8-4.9) g/dL Assessment and Plan Assessment: abdominal pain 2/2 acute cholecystitis, symptomatic cholelithiasis elevated TBili, normalized attempted robotic assisted laparoscopic cholecystectomy, converted to open subtotal fenestrated cholecystectomy with BILLY drain placement 03/02 Plan: Continue Zosyn & will discharge home with antibiotics OK for clears, if tolerates will advance to fulls Optimize pain control Saline lock IVF once tolerating adequate PO intake
[2023-03-03 11:03] LABS: Basophils # (A) 0.06 X 10*3/uL (0.00-0.10); Basophils % (A) 0.8 %; Eosinophils # (A) 0 X 10*3/uL (0.04-0.35); Eosinophils % (A) 0 %; HGB 9.8 g/dL (12.0-15.0); Immature Grans, Automated 1.9 %; Lymphocytes # (A) 0.33 X 10*3/uL (0.90-5.00); Lymphocytes % (A) 4.3 %; MCH 28.8 pg (27.0-32.0); MCHC 30.6 g/dL (32.0-37.0); MCV 94.1 fL (80.0-97.0); Mean Platelet Volume 9.8 fL (9.5-12.2); Monocytes # (A) 0.48 X 10*3/uL (0.20-1.00); Monocytes % (A) 6.2 %; NRBC Per 100 WBC 0 /100 WBCS (0.0-0.0); Neutrophils # (A) 6.69 X 10*3/uL (1.80-7.70); Neutrophils % (A) 86.8 %; Platelet Count 247 X 10*3/uL (140-440); RDW 19.7 % (11.5-14.5); WBC 7.71 X 10*3/uL (4.50-10.00)
[2023-03-03] MEDS: ACETAMINOPHEN TAB 500 MG TAB PO SCH ×3 (11:23→23:00)
[2023-03-03 11:37] LABS: ALT 27 U/L (8-44); AST 36 U/L (13-35); African American GFR (CKD) 121.4 (60.0-200.0); Albumin 2.6 g/dL (3.8-4.9); Albumin/Globulin Ratio 1.54 (1.60-3.17); Alkaline Phosphatase 84 U/L (41-126); BUN/Creat Ratio 7.91 Ratio (12.00-20.00); Blood Urea Nitrogen 5.1 mg/dL (9.0-27.0); Calcium 7.7 mg/dL (8.7-10.3); Carbon Dioxide 14.9 mmol/L (20.0-27.5); Chloride 114 mmol/L (96-109); Globulin 1.7 g/dL (1.6-3.3); Glucose 203 mg/dL (70-110); Non-African American GFR(CKD) 104.8 (60.0-200.0); Potassium 4.8 mmol/L (3.5-5.5); Sodium 138 mmol/L (135-145); Total Bilirubin <0.15 mg/dL (0.30-1.20); Total Protein 4.2 g/dL (6.2-8.2)
--- NOTE | 2023-03-03 19:52 | P.PN ---
Progress Note - Text Progress Note Date: 03/03/23 Hospital course: Patient on March 02 underwent robotic laparoscopic cholecyst tech Dr. holly converted to open subtotal fenestrated cholecystectomy Dr. Butterfield with a BILLY drain placement. March 03: I assumed care from [facility] today. Postoperative pain. No flatus. No nausea vomiting. Did walk. clear liquids. Active Medications Acetaminophen (Acetaminophen Tab 500 Mg Tab) 500 mg PO Q6HR [facility] Last Admin: 03/03/23 17:41 Dose: 500 mg Diazepam (Diazepam 2 Mg Tab) 2 mg PO QID [facility] Last Admin: 03/03/23 17:41 Dose: 2 mg Docusate Sodium (Docusate 100 Mg Cap) 100 mg PO BID [facility] Heparin Sodium (Porcine) (Heparin Sodium,Porcine/Pf 5,000 Unit/0.5 Ml Syringe) 5,000 unit SQ Q12HR [facility] Last Admin: 03/03/23 08:49 Dose: 5,000 unit Hydromorphone HCl (Hydromorphone 0.5 Mg/0.5 Ml Syringe) 0.5 mg IVP Q3H PRN PRN Reason: Pain Last Admin: 03/03/23 19:35 Dose: 0.5 mg Piperacillin Sod/Tazobactam (Sod 3.375 gm/ Sodium Chloride) 100 mls @ 25 mls/hr IVPB Q8HR [facility]; Protocol Last Admin: 03/03/23 16:38 Dose: 25 mls/hr Potassium Chloride/Dextrose/Sod Cl (D5%-Ns-Kcl 20 Meq/L Iv Solution) 1,000 mls @ 125 mls/hr IV .Q8H [facility] Last Admin: 03/03/23 17:41 Dose: 125 mls/hr Ketorolac Tromethamine (Ketorolac 15 Mg/Ml 1 Ml Vial) 15 mg IVP Q6HR [facility] Stop: 03/04/23 18:22 Last Admin: 03/03/23 17:40 Dose: 15 mg Naloxone HCl (Naloxone 0.4 Mg/Ml 1 Ml Vial) 0.2 mg IV Q2M PRN PRN Reason: Opioid Reversal Nicotine (Nicotine 14mg/24hr Patch) 1 patch TRANSDERM DAILY [facility] Last Admin: 03/03/23 08:49 Dose: Not Given Ondansetron HCl (Ondansetron 4 Mg/2 Ml Vial) 4 mg IVP Q6HR PRN PRN Reason: Nausea And Vomiting Last Admin: 03/02/23 04:37 Dose: 4 mg Oxycodone HCl (Oxycodone Hcl 5 Mg Tab) 5 mg PO Q6HR PRN PRN Reason: Pain Last Admin: 03/03/23 15:09 Dose: 5 mg Senna (Sennosides 8.6 Mg Tab) 8.6 mg PO DAILY LEEANN On examination: VITAL SIGNS: [97.5, 83, 19, 115/71, 97% room air] GENERAL APPEARANCE: Declining in bed, not in distress. HEENT: Normal external appearance of nose and ear. Oral cavity normal EYES: Pupils equal. Conjunctiva normal. NECK: JVD not raised. Mass not palpable. RESPIRATORY: Respiratory effort normal. Lungs clear to auscultation. CARDIOVASCULAR: First and second sounds normal. No edema. ABDOMEN: Soft. Tender. No guarding rigidity. Liver and spleen not palpable. No mass palpable. BILLY drain PSYCHIATRY: Alert and oriented x3. Mood and affect normal. INVESTIGATIONS, reviewed in the clinical context: March 03: White count 7.7 hemoglobin 9.8 potassium 4.8 creatinine 0.6 Admission hemoglobin 12.7 Abdominal ultrasound: Acute calculus cholecystitis Assessment and plan: -robotic laparoscopic cholecyst tech Dr. holly converted to open subtotal fenestrated cholecystectomy with a BILLY drain placement. BILLY drain. Clear liquids. -Acute postprocedure blood loss anemia, expected from surgery -Acute hyponatremia on presentation: Better -Hypoalbuminemia, reactive from acute infection -Metabolic acidosis: Worsening Start Sodium bicarbonate drip Tran liquids. BILLY drain. Started IV sodium bicarbonate drip for metabolic acidosis. Discussed with patient. Activity as tolerated
[2023-03-03] MEDS: DOCUSATE 100 MG CAP PO SCH (21:14)
[2023-03-03] MEDS: DEXTROSE 5% IN WATER 1,000 ML with SODIUM BICARB (1 MEQ/ML) 100 ML IV SCH (22:43)
[2023-03-04] MEDS: HYDROmorphone 0.5 MG/0.5 ML SYRINGE IVP PRN ×6 (00:25→23:57)
[2023-03-04] MEDS: KETOROLAC 15 MG/ML 1 ML VIAL IVP SCH ×3 (06:09→17:55)
[2023-03-04 06:21] LABS: African American GFR (CKD) >90 (>60 ml/min/1.73 sqM); Anion Gap 8 mmol/L; Blood Urea Nitrogen 7 mg/dL (7-17); Calcium 7.1 mg/dL (8.4-10.2); Carbon Dioxide 17 mmol/L (22-30); Chloride 111 mmol/L (98-107); Glucose 97 mg/dL (74-99); Magnesium 1.6 mg/dL (1.6-2.3); Non-African American GFR(CKD) >90 (>60 ml/min/1.73 sqM); Potassium 3.7 mmol/L (3.5-5.1); Sodium 136 mmol/L (137-145)
[2023-03-04 09:35] LABS: HCT 27.3 % (37.2-46.3); HGB 8.5 g/dL (12.0-15.0); MCH 28.6 pg (27.0-32.0); MCHC 31.1 g/dL (32.0-37.0); MCV 91.9 fL (80.0-97.0); Mean Platelet Volume 9.9 fL (9.5-12.2); NRBC Per 100 WBC 0.6 /100 WBCS (0.0-0.0); Platelet Count 234 X 10*3/uL (140-440); RBC 2.97 X 10*6/uL (4.10-5.20); RDW 19.5 % (11.5-14.5); WBC 7.04 X 10*3/uL (4.50-10.00)
[2023-03-04] MEDS: NICOTINE 14MG/24HR PATCH TRANSDERM SCH (10:05)
[2023-03-04] MEDS: ACETAMINOPHEN TAB 500 MG TAB PO SCH ×4 (10:05→23:38)
[2023-03-04] MEDS: diazePAM 2 MG TAB PO SCH ×4 (10:06→21:08)
[2023-03-04] MEDS: DOCUSATE 100 MG CAP PO SCH ×2 (10:06→21:08)
[2023-03-04] MEDS: ENOXAPARIN 40 MG/0.4 ML SYRINGE SQ SCH (10:06)
[2023-03-04] MEDS: PIPERACILLIN-TAZOBACTAM 3.375 GM in SODIUM CHLORIDE 0.9% 100 ML IVPB SCH ×3 (10:06→23:40)
[2023-03-04] MEDS: DEXTROSE 5% IN WATER 1,000 ML with SODIUM BICARB (1 MEQ/ML) 100 ML IV SCH ×3 (10:15→23:40)
--- NOTE | 2023-03-04 12:22 | P.PN ---
Subjective Progress Note Date: 03/04/23 Principal diagnosis: Status post open cholecystectomy for acute cholecystitis The patient is postop day 2 open cholecystectomy. She is tearful. Complaining she wants more to eat. Can't around in bed while her get out of bed on her own, feels like something is tearing in her abdomen when she tries to move. Complaining of swelling in her legs. Says she feels worse than before surgery Objective - Vital Signs Vital signs: Vital Signs Temp 98.7 F 03/04/23 12:10 Pulse 95 03/04/23 12:10 Resp 20 03/04/23 12:10 BP 117/81 03/04/23 12:10 Pulse Ox 98 03/04/23 12:10 FiO2 Intake & Output 03/03/23 03/04/23 03/04/23 18:59 06:59 18:59 Output Total 60 185 Balance -60 -185 Weight 56.699 kg Output: Drainage 60 185 Right Abdomen 60 185 Other: Voiding Method Toilet Toilet # Voids 2 - Constitutional Constitutional Comment(s): Anxious and tearful - Respiratory Respiratory: bilateral: CTA - Cardiovascular Rhythm: regular - Gastrointestinal Gastrointestinal Comment(s): Dressings have some dried blood. BILLY is lightly bilious General gastrointestinal: Present: decreased bowel sounds, soft - Labs CBC & Chem 7: 03/04/23 05:34 03/04/23 05:34 Labs: Abnormal Lab Results - Last 24 Hours (Table) 03/04/23 03/04/23 Range/Units 05:34 05:34 RBC 2.97 L (4.10-5.20) X 10*6/uL Hgb 8.5 L (12.0-15.0) g/dL Hct 27.3 L (37.2-46.3) % MCHC 31.1 L (32.0-37.0) g/dL RDW 19.5 H (11.5-14.5) % Absolute Nucleated RBC 0.04 H (0.00-0.00) X 10*3/uL NRBC/100 WBC Diff 0.6 H (0.0-0.0) /100 WBCS Sodium 136 L (137-145) mmol/L Chloride 111 H (98-107) mmol/L Carbon Dioxide 17 L (22-30) mmol/L Calcium 7.1 L (8.4-10.2) mg/dL Phosphorus 2.0 L (2.5-4.5) mg/dL Assessment and Plan (1) Anxiety Current Visit: Yes Status: Acute Code(s): F41.9 - ANXIETY DISORDER, UNSPECIFIED SNOMED Code(s): 99883564 (2) Acute cholecystitis Current Visit: Yes Status: Acute Code(s): K81.0 - ACUTE CHOLECYSTITIS SNOMED Code(s): 38566244 Plan: Patient's white count is not elevated. Her liver function tests were normal. There is some light bilious drainage from the BILLY which was not unexpected. We'll have the nurses helped get her out of bed in order physical therapy to give her some strategies for moving around on her own. I encouraged the patient that the pain she is experiencing is not uncommon after an open cholecystectomy. Should resolve in time. She is receiving multimodal pain control. We'll repeat lab on her in the morning.
--- NOTE | 2023-03-04 18:07 | P.PN ---
Progress Note - Text Progress Note Date: 03/04/23 Hospital course: Patient on March 02 underwent robotic laparoscopic cholecyst tech Dr. holly converted to open subtotal fenestrated cholecystectomy Dr. Butterfield with a BILLY drain placement. March 03: I assumed care from [facility] today. Postoperative pain. No flatus. No nausea vomiting. Did walk. clear liquids. March 04: In bed. No nausea vomiting. Significant pain. Has possible flatus. Remains on clear liquid diet. Encouraged to be out of bed. On IV Zosyn. D5W with sodium bicarbonate for acidosis. Active Medications Acetaminophen (Acetaminophen Tab 500 Mg Tab) 500 mg PO Q6HR [facility] Last Admin: 03/04/23 17:56 Dose: 500 mg Diazepam (Diazepam 2 Mg Tab) 2 mg PO QID [facility] Last Admin: 03/04/23 17:04 Dose: Not Given Docusate Sodium (Docusate 100 Mg Cap) 100 mg PO BID [facility] Last Admin: 03/04/23 10:06 Dose: 100 mg Enoxaparin Sodium (Enoxaparin 40 Mg/0.4 Ml Syringe) 40 mg SQ DAILY [facility] Last Admin: 03/04/23 10:06 Dose: 40 mg Hydromorphone HCl (Hydromorphone 0.5 Mg/0.5 Ml Syringe) 0.5 mg IVP Q3H PRN PRN Reason: Pain Last Admin: 03/04/23 17:56 Dose: 0.5 mg Piperacillin Sod/Tazobactam (Sod 3.375 gm/ Sodium Chloride) 100 mls @ 25 mls/hr IVPB Q8HR [facility]; Protocol Last Admin: 03/04/23 17:01 Dose: 25 mls/hr Sodium Bicarbonate 100 ml/ (Dextrose/Water) 1,100 mls @ 125 mls/hr IV .Q8H48M [facility] Last Admin: 03/04/23 15:13 Dose: 125 mls/hr Ketorolac Tromethamine (Ketorolac 15 Mg/Ml 1 Ml Vial) 15 mg IVP Q6HR [facility] Stop: 03/04/23 18:22 Last Admin: 03/04/23 17:55 Dose: 15 mg Naloxone HCl (Naloxone 0.4 Mg/Ml 1 Ml Vial) 0.2 mg IV Q2M PRN PRN Reason: Opioid Reversal Nicotine (Nicotine 14mg/24hr Patch) 1 patch TRANSDERM DAILY [facility] Last Admin: 03/04/23 10:05 Dose: 1 patch Ondansetron HCl (Ondansetron 4 Mg/2 Ml Vial) 4 mg IVP Q6HR PRN PRN Reason: Nausea And Vomiting Last Admin: 03/02/23 04:37 Dose: 4 mg Oxycodone HCl (Oxycodone Hcl 5 Mg Tab) 5 mg PO Q6HR PRN PRN Reason: Pain Last Admin: 03/03/23 15:09 Dose: 5 mg Senna (Sennosides 8.6 Mg Tab) 8.6 mg PO DAILY LEEANN On examination: VITAL SIGNS: 98.7, 95, 20, 117/81, 98% room air GENERAL APPEARANCE: reclining in bed, HEENT: Normal external appearance of nose and ear. Oral cavity normal EYES: Pupils equal. Conjunctiva normal. NECK: JVD not raised. Mass not palpable. RESPIRATORY: Respiratory effort normal. Lungs clear to auscultation. CARDIOVASCULAR: First and second sounds normal. No edema. ABDOMEN: Soft. Tender. No guarding rigidity. Liver and spleen not palpable. No mass palpable. BILLY drain PSYCHIATRY: Alert and oriented x3. Mood and affect normal. INVESTIGATIONS, reviewed in the clinical context: March 04: White count 7.0 hemoglobin 8.5 platelets 234 potassium 3.7 bicarb 17 creatinine 0.7 March 03: White count 7.7 hemoglobin 9.8 potassium 4.8 creatinine 0.6 Admission hemoglobin 12.7 Abdominal ultrasound: Acute calculus cholecystitis Assessment and plan: -robotic laparoscopic cholecyst tech Dr. holly converted to open subtotal fenestrated cholecystectomy with a BILLY drain placement. BILLY drain. Clear liquids. -Acute postprocedure blood loss anemia, expected from surgery -Acute hyponatremia on presentation: Better -Hypoalbuminemia, reactive from acute infection -Metabolic acidosis: Improving Continue Sodium bicarbonate drip Clear liquids. BILLY drain. Continue IV sodium bicarbonate drip for metabolic acidosis. Discussed with patient. Activity as tolerated. Change bicarbonate drip to lactated Ringer's in the morning. Repeat labs.
[2023-03-04] MEDS: SENNOSIDES 8.6 MG TAB PO SCH (21:08)
[2023-03-05 01:30] VITALS: TEMP 97.8
[2023-03-05] MEDS: HYDROmorphone 0.5 MG/0.5 ML SYRINGE IVP PRN ×3 (03:36→12:53)
[2023-03-05] MEDS ORDERED: LACTATED RINGERS 1,000 ML IV SCH (06:00)
[2023-03-05] MEDS: ACETAMINOPHEN TAB 500 MG TAB PO SCH (06:04)
[2023-03-05 06:57] LABS: ALT 25 U/L (4-34); AST 29 U/L (14-36); African American GFR (CKD) >90 (>60 ml/min/1.73 sqM); Albumin 2.2 g/dL (3.5-5.0); Albumin/Globulin Ratio 1.1; Alkaline Phosphatase 88 U/L (38-126); Anion Gap 6 mmol/L; Blood Urea Nitrogen 6 mg/dL (7-17); Calcium 7.7 mg/dL (8.4-10.2); Carbon Dioxide 25 mmol/L (22-30); Chloride 104 mmol/L (98-107); Glucose 100 mg/dL (74-99); Non-African American GFR(CKD) >90 (>60 ml/min/1.73 sqM); Potassium 4.2 mmol/L (3.5-5.1); Sodium 135 mmol/L (137-145); Total Bilirubin 0.3 mg/dL (0.2-1.3); Total Protein 4.2 g/dL (6.3-8.2)
[2023-03-05 08:11] VITALS: BP 103/67; PULSE 63; RESP 18
[2023-03-05] MEDS: PIPERACILLIN-TAZOBACTAM 3.375 GM in SODIUM CHLORIDE 0.9% 100 ML IVPB SCH (09:27)
[2023-03-05] MEDS: diazePAM 2 MG TAB PO SCH (09:28)
[2023-03-05] MEDS: NICOTINE 14MG/24HR PATCH TRANSDERM SCH (09:28)
[2023-03-05] MEDS: DOCUSATE 100 MG CAP PO SCH (09:28)
[2023-03-05] MEDS: ENOXAPARIN 40 MG/0.4 ML SYRINGE SQ SCH (09:28)
[2023-03-05] MEDS: SENNOSIDES 8.6 MG TAB PO SCH (09:28)
--- NOTE | 2023-03-05 10:39 | P.PN ---
Subjective Progress Note Date: 03/05/23 Principal diagnosis: Status post open cholecystectomy for acute cholecystitis The patient is seen on rounds. She was able to ambulate in the pandey this morning. She was anxious but responded well to the Valium per nursing. Patient is hungry. Denies any nausea or vomiting. Objective - Vital Signs Vital signs: Vital Signs Temp 97.8 F 03/05/23 07:13 Pulse 63 03/05/23 07:13 Resp 18 03/05/23 07:13 BP 103/67 03/05/23 07:13 Pulse Ox 96 03/05/23 07:13 FiO2 Intake & Output 03/04/23 03/05/23 03/05/23 18:59 06:59 18:59 Intake Total 360 Output Total 150 280 Balance 210 -280 Intake: Oral 360 Output: Drainage 150 280 Right Abdomen 150 280 Other: Voiding Method Toilet Toilet # Voids 2 1 - Constitutional General appearance: Present: cooperative, no acute distress - Gastrointestinal Gastrointestinal Comment(s): The BILLY drain has changed to flank ileus material. General gastrointestinal: Present: soft - Labs CBC & Chem 7: 03/04/23 05:34 03/05/23 05:57 Labs: Abnormal Lab Results - Last 24 Hours (Table) 03/05/23 Range/Units 05:57 Sodium 135 L (137-145) mmol/L BUN 6 L (7-17) mg/dL Glucose 100 H (74-99) mg/dL Calcium 7.7 L (8.4-10.2) mg/dL Total Protein 4.2 L (6.3-8.2) g/dL Albumin 2.2 L (3.5-5.0) g/dL Assessment and Plan (1) Anxiety Current Visit: Yes Status: Acute Code(s): F41.9 - ANXIETY DISORDER, UNSPECIFIED SNOMED Code(s): 01962910 (2) Acute cholecystitis Current Visit: Yes Status: Acute Code(s): K81.0 - ACUTE CHOLECYSTITIS SNOMED Code(s): 65731941 (3) Bile leak, postoperative Current Visit: Yes Status: Acute Code(s): K91.89 - OTH POSTPROCEDURAL COMPLICATIONS AND DISORDERS OF DGSTV SYS; K83.8 - OTHER SPECIFIED DISEASES OF BILIARY TRACT SNOMED Code(s): 628179143 Plan: Patient is hemodynamically stable and liver function tests are unremarkable. The drain is controlling the bile leak but she's had a fairly high output. We'll attempt to transfer her to a tertiary center for ERCP. This was discussed with the patient. Questions were encouraged and answered.
--- NOTE | 2023-03-05 11:06 | P.DS ---
Providers Date of admission: 02/26/23 21:40 Expected date of discharge: 03/05/23 Attending physician: Trena Ruvalcaba DO Consults: 02/26/23 21:34 Consult Physician Routine Consulting Provider: Jorge Metz Consult Reason/Comments: medicine consult Do you want consulting provider notified?: Yes Primary care physician: Kofi Guevara - Discharge Diagnosis(es) (1) Anxiety Current Visit: Yes Status: Acute (2) Acute cholecystitis Current Visit: Yes Status: Acute (3) Bile leak, postoperative Current Visit: Yes Status: Acute Hospital Course: Patient presented with acute abdominal pain. Workup showed acute cholecystitis. She was taken to the OR where a laparoscopic cholecystectomy was attempted but due to the degree of disease she was converted to an open procedure. She had a lot of anxiety and expected postoperative pain. She began fell vehicle bile leak which was milan I'll by 514. Therefore since we did not have GI available in town she is transferred for further workup and treatment. Dr. Grant and Dr. Nichols at [facility] have accepted the patient in transfer Patient Condition at Discharge: Good Plan - Discharge Summary Discharge Rx Participant: Yes New Discharge Prescriptions: No Action HYDROcodone/APAP 5-325MG [Ballinger 5-325] 1 tab PO Q6H PRN PRN Reason: Pain Ibuprofen [Motrin Ib] 600 mg PO DAILY PRN PRN Reason: Pain Discharge Medication List HYDROcodone/APAP 5-325MG [Ballinger 5-325] 1 tab PO Q6H PRN 02/26/23 [History] Ibuprofen [Motrin Ib] 600 mg PO DAILY PRN 02/26/23 [History] Follow up Appointment(s)/Referral(s): Kofi Guevara MD [Primary Care Provider] - 1-2 days [facility] Visiting Nurse, [NON-STAFF] - 1 Week Discharge Disposition: OTHER INSTITUTION NOT DEFINED
[2023-03-05] MEDS ORDERED: PANTOPRAZOLE 40 MG/10 ML VIAL IVP SCH (11:15)
--- NOTE | 2023-03-05 16:53 | P.PN ---
Progress Note - Text Progress Note Date: 03/05/23 Hospital course: Patient on March 02 underwent robotic laparoscopic cholecyst tech Dr. holly converted to open subtotal fenestrated cholecystectomy Dr. Butterfield with a BILLY drain placement. March 03: [facility] assumed care [facility] today. Postoperative pain. No flatus. No nausea vomiting. Did walk. clear liquids. March 04: In bed. No nausea vomiting. Significant pain. Has possible flatus. Remains on clear liquid diet. Encouraged to be out of bed. On IV Zosyn. D5W with sodium bicarbonate for acidosis. March 05: Significant output to the BILLY drain. Seen by Dr. Sheehan this morning. Significant bile leak. As GI services not available patient is requiring ERCP Dr. Sheehan transferring the patient to [facility]. Discussed with patient. Current medications reviewed On examination: VITAL SIGNS: He 7.8, 63, 18, 103/67, 96% room air GENERAL APPEARANCE: reclining in bed, HEENT: Normal external appearance of nose and ear. Oral cavity normal EYES: Pupils equal. Conjunctiva normal. NECK: JVD not raised. Mass not palpable. RESPIRATORY: Respiratory effort normal. Lungs clear to auscultation. CARDIOVASCULAR: First and second sounds normal. No edema. ABDOMEN: Soft. Tender. No guarding rigidity. Liver and spleen not palpable. No mass palpable. BILLY drain PSYCHIATRY: Alert and oriented x3. Mood and affect normal. INVESTIGATIONS, reviewed in the clinical context: March 05: Potassium 4.2 creatinine 0.71 bicarbonate 25 March 04: White count 7.0 hemoglobin 8.5 platelets 234 potassium 3.7 bicarb 17 creatinine 0.7 March 03: White count 7.7 hemoglobin 9.8 potassium 4.8 creatinine 0.6 Admission hemoglobin 12.7 Abdominal ultrasound: Acute calculus cholecystitis Assessment and plan: -robotic laparoscopic cholecyst tech Dr. holly converted to open subtotal fenestrated cholecystectomy with a BILLY drain placement. BILLY drain. Clear liquids. -Significant postcholecystectomy biliary leak. Patient will require ERCP. -Acute postprocedure blood loss anemia, expected from surgery -Acute hyponatremia on presentation: Better -Hypoalbuminemia, reactive from acute infection -Metabolic acidosis: Improving Continue Sodium bicarbonate drip Continue current treatment. Patient being transferred out to [facility] for higher level care. As GI service not available to do ERCP.
--- NOTE | 2023-03-08 19:33 | CDI ---
Documentation Clarification Form Date: 03/08/2023 7:00:44 PM From: Mita De Luna RN, CCDS Phone: Admit Date: 02/26/2023 9:40:00 PM Patient Name: Carissa Cruz Visit Number: [id number] Discharge Date: 03/05/2023 3:06:00 PM ATTENTION: The Clinical Documentation Specialists (CDI) and [facility] Coding Staff appreciate your assistance in clarifying documentation. Please respond to the clarification below the line at the bottom and electronically sign. The CDI & [facility] Coding staff will review the response and follow-up if needed. Please note: Queries are made part of the Legal Health Record. If you have any questions, please contact the author of this message via ITS. Dr. Trena Ruvalcaba Bile leak, postoperative is documented in the surgical progress note on 03/05/2023 and patient had robotic assisted laparoscopic cholecystectomy, converted to open subtotal fenestrated cholecystectomy with BILLY drain placement on 03/02/2023. Additional clarification is requested regarding the relationship, if any, that exists between the diagnosis and the procedure. Patients Admitting Diagnosis: Acute cholecystitis. Post-Operative Diagnosis: Acute on Chronic cholecystitis gallbladder hydrops Procedure performed: Robotic assisted laparoscopic cholecystectomy, converted to open subtotal fenestrated cholecystectomy with BILLY drain placement. History/Risk Factors: Current every day smoker Clinical Indicators: 48-year-old female present with complaints of right upper quadrant abdominal pain, diarrhea and vomiting. 02/723 VS: 117/74 68 16 97 % RA 02/26/23 Labs WBC 10.0 HGB 12.7, Na+ 132, Total Bilirubin 2.3 02/26/23 US Abdomen: Sonographic findings concerning for acute calculus cholecystitis. Treatment: .9NS @ 75 ML IV HR02/26-03/01 Zosyn 3.375 MG IVPB Q8 HRS 02/27-03/05 Monitor BILLY Output What relationship, if any, exists between the diagnosis of Bile leak, postoperative and the procedure? [ ] Bile leak, postoperative is a complication of surgical procedure. [ x ] Bile leak, postoperative is an expected outcome of the surgical procedure. [ ] Bile leak, postoperative is related to patients co-morbid condition(s) of [insert co-morbid dxs] & not a complication of the procedure. [ ] Other please specify ____ [ ] Unable to determine. (Template Last Revised: December 2020) MTDD
== END 2023-03-05 15:06 | disposition short-term general hospital (02) | DRG 263 ==
LOC: EC 19:45 → 5NMEDONC 21:40
PROVIDERS: ADMIT Surgery; ATTEND Surgery
PROC: 0FT40ZZ Resection of Gallbladder, Open Approach (ICD-10-PCS; principal; 2023-03-02 15:00)
PROC: 0FJ44ZZ Inspection of Gallbladder, Percutaneous Endoscopic Approach (ICD-10-PCS; principal; 2023-03-02 15:00)
PROC: 8E0W4CZ Robotic Assisted Procedure of Trunk Region, Percutaneous Endoscopic Approach (ICD-10-PCS; principal; 2023-03-02 15:00)
DX: K80.12 Calculus of gallbladder with acute and chronic cholecystitis without obstruction (principal); K82.1 Hydrops of gallbladder; D62 Acute posthemorrhagic anemia; Z28.310 Unvaccinated for COVID-19; Z28.21 Immunization not carried out because of patient refusal; E88.09 Other disorders of plasma-protein metabolism, not elsewhere classified; E87.1 Hypo-osmolality and hyponatremia; F17.210 Nicotine dependence, cigarettes, uncomplicated; F41.9 Anxiety disorder, unspecified; Z53.31 Laparoscopic surgical procedure converted to open procedure
CPT/HCPCS: 71045; 76705; 80048; 80053; 81025; 83605; 83735; 84100; 85025; 85027; 85610; 85730; 88304; 96374; 96375; 99285